=== PATIENT | female | born 2000 | race Native Hawaiian/Other Pacific Islander ===

== ENCOUNTER 2022-07-06 19:49 | Emergency (ER) | payer OTHER, SELFPAY ==
--- NOTE | 2022-07-06 19:50 | ED.ALLEREA ---
HPI - Allergic Reaction General Chief complaint: Skin/Abscess/Foreign Body Stated complaint: Bilateral Eye Irritation,SOB,Allergic Reaction Time Seen by Provider: 07/06/22 19:50 Source: patient Mode of arrival: ambulatory Limitations: no limitations History of Present Illness HPI narrative: Ms. Nash is a 21-year-old female patient presenting to the clinic today with complaints of bilateral eye irritation, shortness of breath, and allergic reaction. She reports this occurred approximately 30 minutes ago after touching a rabbit. She reports when she was younger she was severely allergic to rabbits but she did not know if she was still allergic to them. States after petting the rabbit her eyes became very irritated and watering. She also reports a nonproductive cough and shortness of breath. Related Data Home Medications Medication Instructions Recorded Confirmed sertraline 50 mg tablet 50 mg PO DAILY 07/06/22 07/06/22 Allergies Allergy/AdvReac Type Severity Reaction Status Date / Time rabbit dander AdvReac Severe Difficulty Verified 07/06/22 20:24 Breathing Review of Systems Review of Systems: Pertinent positives per HPI. Patient denies any fever, chills, rash, headache, visual changes, dizziness, runny nose, sore throat, chest pain, palpitations, nausea, vomiting, diarrhea, constipation, abdominal pain, or any urinary issues. PMFSH Comments At the time of my signature, I reviewed and agree with the nursing past medical, surgical, social, and family history. There is no relevant family history pertinent to the patient complaint. Exam Narrative: General: Well-developed, well nourished, in no apparent distress Head: Normocephalic, atraumatic Eyes: Pupils equally round and reactive to light bilaterally, EOM intact, sclera and conjunctive injected, clear watery discharge, bilateral eyelid swelling Ears: TMs intact and clear, ear canals clear, no drainage, grossly hearing normal. Nose: Nares patent, no discharge, no inflammation, no sinus tenderness. Mouth: Oropharynx without lesions or masses, good dentition, MMM. Neck: Supple, trachea midline, no enlargement of anterior or posterior cervical nodes, no thyroid masses or goiter palpable. Cardio: Regular rate and rhythm, s1 and s2 normal, no murmur appreciated. Resp: Lung sounds tight with expiratory wheezing, no rhonchi, rales, or rubs, SPO2 100% on room air, patient able to speak in full sentences. Skin: Intact, pink, warm, dry, no masses or lesions, no rash Course Course Emergency Course: Portions of this record may have been created with voice recognition software. Level of Care: Express Care Visit Vital Signs Vital signs: Vital signs reviewed MDM - Allergic Reaction MDM Narrative Medical decision making narrative: At the time of visit patient is resting comfortably on exam table. I suspect the patient has had an allergic reaction. Decadron 10 mg IM given in the clinic, handheld neb treatment/DuoNeb given in the clinic, Pepcid 40 mg p.o. given in the clinic today. Patient reports that she is now breathing easier and is more comfortable after these medications were given. Supportive measures were discussed with the patient she voiced understanding of discharge instructions and agrees to treatment plan. Prescriptions were sent to the pharmacy for prednisone 40 mg daily x5 days, Pepcid 40 mg daily x7 days, and an albuterol inhaler to use as needed every 4-6 hours for shortness of breath, cough, and wheeze. Differential Diagnosis Differential diagnosis: Likely anaphylaxis, allergic reaction, angioedema, urticaria and other Discharge Plan Discharge Clinical Impression: Allergic reaction to animal Patient Disposition: Home, Self-Care Condition: Stable Instructions: Antibiotic Form, General Allergic Reaction (ED) Additional Instructions: Decadron 10 mg IM given in the clinic, Pepcid 40 mg given in the clinic by mouth, and albuterol/ipr
[2022-07-06 19:58] VITALS: BP 133/93; PULSE 70; RESP 18; TEMP 36.7; O2SAT 100
[2022-07-06 20:00] VITALS: PULSE 70; RESP 18; O2SAT 100
[2022-07-06] MEDS: FAMOTIDINE 20 MG TABLET 40 MG PO (20:06)
[2022-07-06] MEDS: ALBUTEROL SULFATE NEB 2.5 MG/3 ML INH INHALATION (20:07)
[2022-07-06] MEDS: IPRATROPIUM BR 0.02% INH SOLN 0.5 MG/2.5 ML VIAL INHALATION (20:07)
[2022-07-06 20:28] VITALS: PULSE 82; RESP 18; O2SAT 100
== END 2022-07-06 20:31 | disposition home or self-care (01) ==
PROVIDERS: Emergency Provider Nurse Practitioner Family
DX: R06.02 Shortness of breath (principal); H02.846 Edema of left eye, unspecified eyelid; H02.843 Edema of right eye, unspecified eyelid; J30.81 Allergic rhinitis due to animal (cat) (dog) hair and dander
CPT/HCPCS: 94640; 96372; 99203; A9270; G0463; J1100